=== PATIENT | male | born 1995 | race Caucasian/White ===

== ENCOUNTER 2017-10-20 19:21 | Emergency (ER) | payer SELFPAY ==
[2017-10-20 19:47] VITALS: BP 144/98
[2017-10-20] MEDS ORDERED: cefTRIAXone 250 MG Vial IM ONE (21:32)
[2017-10-20] MEDS ORDERED: Azithromycin 250 MG Tab PO ONE (21:32)
--- NOTE | 2017-10-20 21:41 | EDM.PDOC ---
ED HPI GENERAL MEDICAL PROBLEM - General Chief Complaint: Genitourinary Problem Stated Complaint: urine Time Seen by Provider: 10/20/17 21:25 Source of Information: Reports: Patient History Limitations: Reports: No Limitations - History of Present Illness INITIAL COMMENTS - FREE TEXT/NARRATIVE: This 21 yo male patient reports to the ED due to getting a text from a previous sexual partner stating that she has chlamydia. The patient reports that he found out late Saturday night and knows that he needs to be treated. The patient also reports that he has a current sexual partner and asked if she needs to be treated also. Onset: Other Duration: Other Location: Reports: Other Quality: Reports: Other Severity: Mild Improves with: Reports: None Worsens with: Reports: None Associated Symptoms: Reports: No Other Symptoms - Related Data Allergies Allergy/AdvReac Type Severity Reaction Status Date / Time dextromethorphan HBr Allergy Drowsiness Verified 10/20/17 19:44 [From Dimetapp Cold-Congestion] diphenhydramine HCl Allergy Drowsiness Verified 10/20/17 19:44 [From Dimetapp Cold-Congestion] guaifenesin Allergy Drowsiness Verified 10/20/17 19:44 [From Dimetapp Cold-Congestion] phenylephrine HCl Allergy Drowsiness Verified 10/20/17 19:44 [From Dimetapp Cold-Congestion] pseudoephedrine HCl Allergy Drowsiness Verified 10/20/17 19:44 [From Dimetapp Cold-Congestion] Home Meds: Home Meds . [No Known Home Meds] 04/08/13 [History] Past Medical History - Past Health History Medical/Surgical History: Denies Medical/Surgical History Social & Family History - Tobacco Use Smoking Status *Q: Current Every Day Smoker Years of Tobacco use: 1 Packs/Tins Daily: 0.5 - Caffeine Use Caffeine Use: Reports: None - Recreational Drug Use Recreational Drug Use: No ED ROS GENERAL - Review of Systems Review Of Systems: ROS reveals no pertinent complaints other than HPI. ED EXAM, RENAL/ - Physical Exam Exam: See Below Exam Limited By: No Limitations General Appearance: Alert, WD/WN, No Apparent Distress Eye Exam: Bilateral Eye: EOMI, Normal Inspection, PERRL Ears: Normal External Exam, Normal Canal, Hearing Grossly Normal, Normal TMs Nose: Normal Inspection, Normal Mucosa, No Blood Throat/Mouth: Normal Inspection, Normal Lips, Normal Teeth, Normal Gums, Normal Oropharynx, Normal Voice, No Airway Compromise Head: Atraumatic, Normocephalic Neck: Normal Inspection, Supple, Non-Tender, Full Range of Motion Respiratory/Chest: No Respiratory Distress, Lungs Clear, Normal Breath Sounds, No Accessory Muscle Use, Chest Non-Tender Cardiovascular: Normal Peripheral Pulses, Regular Rate, Rhythm, No Edema, No Gallop, No JVD, No Murmur, No Rub GI/Abdominal: Normal Bowel Sounds, Soft, Non-Tender, No Organomegaly, No Distention, No Abnormal Bruit, No Mass (Male) Exam: Deferred Rectal (Males) Exam: Deferred Back Exam: Normal Inspection, Full Range of Motion, NT Extremities: Normal Inspection, Normal Range of Motion, Non-Tender, Normal Capillary Refill, No Pedal Edema Neurological: Alert, Oriented, CN II-XII Intact, Normal Cognition, Normal Gait, Normal Reflexes, No Motor/Sensory Deficits Psychiatric: Normal Affect, Normal Mood Skin Exam: Warm, Dry, Intact, Normal Color, No Rash Lymphatic: No Adenopathy Course - Vital Signs Last Recorded V/S: Last Vital Signs Temp 37.1 C 10/20/17 19:46 Pulse 90 10/20/17 19:46 Resp 18 10/20/17 19:46 BP 144/98 H 10/20/17 19:46 Pulse Ox 100 10/20/17 19:46 - Orders/Labs/Meds Meds: Medications Discontinued Medications Generic Name Dose Route Start Last Admin Trade Name Freq PRN Reason Stop Dose Admin Azithromycin 1,000 mg 10/20/17 21:32 Zithromax PO 10/20/17 21:33 ONETIME ONE Ceftriaxone Sodium 250 mg 10/20/17 21:32 Rocephin IM 10/20/17 21:33 ONETIME ONE Departure - Departure Time of Disposition: 21:38 Disposition: Home, Self-Care 01 Condition: Fair Clinical Impression: Exposure to STD - Discharge Information *PRESCRIPTION DRUG MONITORING PROGRAM REVIEWED*: Not Applicable *COPY OF PRESCRIPTION DRUG MONITORING REPORT IN PATIENT ELVIS: Not Applicable Care Plan Goals: The patient was advised of the examination results during the visit. The patient was given an injection of Rocephin and an oral dose of Azithromycin while in the ED. The patient was advised to notify any sexual partners in order for them to get treated as well. If the patient has any additional symptoms or concerns, the patient should follow-up with his primary care facility or return to the emergency department.
== END 2017-10-20 21:55 | disposition home or self-care (01) ==
LOC: DL.ED 19:21
DX: Z20.2 Contact with and (suspected) exposure to infections with a predominantly sexual mode of transmission (principal); Z88.8 Allergy status to other drugs, medicaments and biological substances; F17.210 Nicotine dependence, cigarettes, uncomplicated
CPT/HCPCS: 96372; 99283; A9270; J0696

== ENCOUNTER 2017-11-11 17:09 | Emergency (ER) | payer OTHER ==
[2017-11-11 17:23] VITALS: BP 144/71
[2017-11-11] MEDS ORDERED: Lidocaine 1% 30 ML SDV INJECT ONE (17:26)
[2017-11-11] MEDS ORDERED: Bacitracin Oint 1 GM U/D Packet TOP ONE (17:26)
--- NOTE | 2017-11-11 17:32 | EDM.PDOC ---
ED HPI GENERAL MEDICAL PROBLEM - General Chief Complaint: Upper Extremity Injury/Pain Stated Complaint: CUT FINGER AT WORK Time Seen by Provider: 11/11/17 17:25 Source of Information: Reports: Patient History Limitations: Reports: No Limitations - History of Present Illness INITIAL COMMENTS - FREE TEXT/NARRATIVE: This 21 yo male patient reports to the ED with a laceration to his right 4th finger. 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 When he was reaching for the chain break, he missed the break and hit the chain. The patient reports the incident happened about 45 minutes to 1 hour prior to his arrival in the ED. The patient has no current bleeding as he was holding pressure to the area since the incident. Onset: Today Duration: Minutes: Location: Reports: Upper Extremity, Right Quality: Reports: Other Severity: Mild Improves with: Reports: None Worsens with: Reports: None Associated Symptoms: Reports: No Other Symptoms Right 4-Ring finger Pain Score (Numeric/FACES): 2 - Related Data Allergies Allergy/AdvReac Type Severity Reaction Status Date / Time dextromethorphan HBr Allergy Drowsiness Verified 11/11/17 17:23 [From Dimetapp Cold-Congestion] diphenhydramine HCl Allergy Drowsiness Verified 11/11/17 17:23 [From Dimetapp Cold-Congestion] guaifenesin Allergy Drowsiness Verified 11/11/17 17:23 [From Dimetapp Cold-Congestion] phenylephrine HCl Allergy Drowsiness Verified 11/11/17 17:23 [From Dimetapp Cold-Congestion] pseudoephedrine HCl Allergy Drowsiness Verified 11/11/17 17:23 [From Dimetapp Cold-Congestion] Home Meds: Home Meds . [No Known Home Meds] 04/08/13 [History] Past Medical History - Past Health History Medical/Surgical History: Denies Medical/Surgical History Social & Family History - Caffeine Use Caffeine Use: Reports: None Review of Systems - Review of Systems Review Of Systems: ROS reveals no pertinent complaints other than HPI. ED EXAM, GENERAL - Physical Exam Exam: See Below Exam Limited By: No Limitations General Appearance: Alert, WD/WN, Mild Distress Eye Exam: Bilateral Eye: EOMI, Normal Inspection, PERRL Ears: Normal External Exam, Normal Canal, Hearing Grossly Normal, Normal TMs Nose: Normal Inspection, Normal Mucosa, No Blood Throat/Mouth: Normal Inspection, Normal Lips, Normal Teeth, Normal Gums, Normal Oropharynx, Normal Voice, No Airway Compromise Head: Atraumatic, Normocephalic Neck: Normal Inspection, Supple, Non-Tender, Full Range of Motion Respiratory/Chest: No Respiratory Distress, Lungs Clear, Normal Breath Sounds, No Accessory Muscle Use, Chest Non-Tender Cardiovascular: Normal Peripheral Pulses, Regular Rate, Rhythm, No Edema, No Gallop, No JVD, No Murmur, No Rub GI/Abdominal: Normal Bowel Sounds, Soft, Non-Tender, No Organomegaly, No Distention, No Abnormal Bruit, No Mass (Male) Exam: Deferred Rectal (Males) Exam: Deferred Back Exam: Normal Inspection, Full Range of Motion, NT Extremities: Arm Pain (right hand) Neurological: Alert, Oriented, CN II-XII Intact, Normal Cognition, Normal Gait, Normal Reflexes, No Motor/Sensory Deficits Psychiatric: Normal Affect, Normal Mood Skin Exam: Wound/Incision (right 4th digit between MCP and PIP joints with no joint involvement.) Lymphatic: No Adenopathy ED TRAUMA EXTREMITY PROCEDURES - Laceration/Wound Repair Right Proximal Digit - 4th (Ring) Lac/Wound Length In cm: 2.0 Appearance: Subcutaneous, Irregular, Moderately Contaminated Anesthetic Type: Local Local Anesthesia - Lidocaine (Xylocaine): 1% Plain Local Anesthetic Volume: 3cc Skin Prep: Chlorhexidine (Hibiciens), Saline Exploration/Debridement/Repair: Wound Explored, Moderate Debridement, Foreign Material Removed, Wound Margins Revised Closed With: Sutures Suture Size: 4-0 # of Sutures: 6 Suture Type: Prolene, Interrupted, Simple Sterile Dressing Applied: Nurse Tetanus Status Addressed: Yes Complications: No Course - Vital Signs Last Recorded V/S: Last Vital Signs Temp 37.2 C 11/11/17 17:18 Pulse 78 11/11/17 17:18 Resp 18 11/11/17 17:18 BP 144/71 H 11/11/17 17:18 Pulse Ox 99 11/11/17 17:18 - Orders/Labs/Meds Meds: Medications Discontinued Medications Generic Name Dose Route Start Last Admin Trade Name Freq PRN Reason Stop Dose Admin Bacitracin 1 dose 11/11/17 17:26 11/11/17 18:00 Bacitracin Oint 1 Gm TOP 11/11/17 17:27 1 dose ONETIME ONE Administration Lidocaine HCl 30 ml 11/11/17 17:26 11/11/17 17:34 Xylocaine-Mpf 1% INJECT 11/11/17 17:27 30 ml ONETIME ONE Administration Departure - Departure Time of Disposition: 18:05 Disposition: Home, Self-Care 01 Condition: Fair Clinical Impression: Laceration of right ring finger Qualifiers: Encounter type: initial encounter Damage to nail status: without damage Foreign body presence: with foreign body Qualified Code(s): S61.224A - Laceration with foreign body of right ring finger without damage to nail, initial encounter - Discharge Information *PRESCRIPTION DRUG MONITORING PROGRAM REVIEWED*: Not Applicable *COPY OF PRESCRIPTION DRUG MONITORING REPORT IN PATIENT ELVIS: Not Applicable Instructions: Laceration Care, Adult, [id number] Forms: ED Department Discharge Care Plan Goals: The patient was advised of the examination results during the visit. The wound margins were well approximated during the visit. The patient should have the sutures removed in about 14 days. The patient was encouraged to keep the area clean and dry over the next 24 hours. The patient should keep the laceration covered while at work until sutures are removed. The patient was discharged with a script for Keflex (500 mg) to take 1 by mouth 3 times per day for 10 days. If the patient has any additional symptoms or concerns, the patient should follow-up with his primary care facility or return to the emergency department.
== END 2017-11-11 18:14 | disposition home or self-care (01) ==
LOC: DL.ED 17:09
DX: S61.214A Laceration without foreign body of right ring finger without damage to nail, initial encounter (principal); W22.8XXA Striking against or struck by other objects, initial encounter
CPT/HCPCS: 12001; 12011; 99283

== ENCOUNTER 2022-06-29 21:12 | Emergency (ER) | payer SELFPAY ==
[2022-06-29 21:51] LABS: BASOPHILS PERCENT AUTO 0.4 % (0.0-1.0); HEMATOCRIT 45.1 % (40.0-54.0); HEMOGLOBIN 15.8 g/dL (14.0-18.0); LYMPHOCYTES PERCENT AUTO 39.9 % (20.5-50.1); MEAN CORPUSCULAR HEMOGLOBIN 33.5 pg (27.0-34.0); MEAN CORPUSCULAR VOLUME 95.6 fL (80-100); MONOCYTES PERCENT AUTO 9.5 % (2-8); NEUTROPHILS PERCENT AUTO 49.2 % (42.2-75.2); PLATELET COUNT,PLT 235 10^3/uL (150-450); RED BLOOD CELL COUNT 4.72 10^6/uL (4.6-6.2); WHITE BLOOD CELL COUNT,WBC 11.2 10^3/uL (5.0-10.0)
[2022-06-29 22:11] LABS: A/G RATIO 1.2; ALANINE AMINOTRANSFERASE,ALT 59 U/L (16-63); ALKALINE PHOSPHATASE 86 U/L (46-116); ANION GAP 10.9 mEq/L (7-13); ASPARTATE AMNIOTRANSFERASE,AST 30 U/L (15-37); BILIRUBIN TOTAL 0.4 mg/dL (0.2-1.0); BLOOD UREA NITROGEN,BUN 16 mg/dL (7-18); BUN/CREATININE RATIO 11.3 (No establ ref range); CALCIUM 8.8 mg/dL (8.5-10.1); CARBON DIOXIDE,CO2 29 mmol/L (21-32); CHLORIDE,CL 104 mmol/L (98-107); CREATININE 1.42 mg/dL (0.70-1.30); GLUCOSE RANDOM 104 mg/dL (70-99); POTASSIUM,K 3.9 mmol/L (3.5-5.1); PROTEIN TOTAL,TP 7.3 g/dL (6.4-8.2); SODIUM,NA 140 mmol/L (136-145)
[2022-06-29 22:12] LABS: ESTIMATED GFR 70 mL/min (>=60)
[2022-06-29 22:24] VITALS: BP 128/71; PULSE 71
== END 2022-06-29 22:20 | disposition home or self-care (01) ==
LOC: DL.ED 21:12
DX: R59.1 Generalized enlarged lymph nodes (principal); Z88.8 Allergy status to other drugs, medicaments and biological substances
CPT/HCPCS: 36415; 80053; 85025; 85379; 99283

== ENCOUNTER 2022-07-26 08:18 | Emergency (ER) | payer SELFPAY ==
[2022-07-26] MEDS ORDERED: Sodium Chloride 0.9% 1,000 ML IV ONE (08:45)
[2022-07-26] MEDS ORDERED: Pantoprazole 40 MG Vial IVPUSH ONE (08:45)
[2022-07-26] MEDS ORDERED: Ondansetron 4 MG/2 ML SDV IV ONE (08:45)
[2022-07-26] MEDS ORDERED: Sodium Chloride 0.9% 10 ML Syringe FLUSH PRN (08:45)
[2022-07-26 08:59] LABS: BASOPHILS PERCENT AUTO 0.3 % (0.0-1.0); EOSINOPHILS PERCENT AUTO 0.3 % (1.0-3.0); HEMATOCRIT 47.4 % (40.0-54.0); HEMOGLOBIN 16.4 g/dL (14.0-18.0); MEAN CORPUSCULAR HEMOGLOBIN 33.4 pg (27.0-34.0); MEAN CORPUSCULAR HGB CONC 34.6 g/dL (33.0-35.0); MEAN CORPUSCULAR VOLUME 96.5 fL (80-100); MONOCYTES PERCENT AUTO 10.7 % (2-8); NEUTROPHILS PERCENT AUTO 55.7 % (42.2-75.2); PLATELET COUNT,PLT 250 10^3/uL (150-450); RED BLOOD CELL COUNT 4.91 10^6/uL (4.6-6.2); WHITE BLOOD CELL COUNT,WBC 7.6 10^3/uL (5.0-10.0)
[2022-07-26 09:26] LABS: A/G RATIO 1.4; ALBUMIN 4.4 g/dL (3.4-5.0); ANION GAP 18.1 mEq/L (7-13); BILIRUBIN TOTAL 0.4 mg/dL (0.2-1.0); BUN/CREATININE RATIO 14.6 (No establ ref range); CALCIUM 9.1 mg/dL (8.5-10.1); CREATININE 0.96 mg/dL (0.70-1.30); EST CRCL DRUG DOSING (CG) 117.63 mL/min; POTASSIUM,K 4.1 mmol/L (3.5-5.1); PROTEIN TOTAL,TP 7.6 g/dL (6.4-8.2)
[2022-07-26 09:29] LABS: LACTIC ACID 1.5 mmol/L (0.4-2.0)
[2022-07-26 09:32] LABS: PROTHROMBIN TIME 9.8 SEC (9.0-12.0); PTT,PARTIAL THROMBOPLSTIN TIME 28.1 SEC (22.0-34.0)
[2022-07-26 09:45] VITALS: BP 126/98; PULSE 64
== END 2022-07-26 09:44 | disposition home or self-care (01) ==
LOC: DL.ED 08:18
DX: K29.20 Alcoholic gastritis without bleeding (principal); F17.210 Nicotine dependence, cigarettes, uncomplicated; Z88.8 Allergy status to other drugs, medicaments and biological substances
CPT/HCPCS: 36415; 80053; 80307; 82150; 83605; 83690; 85025; 85610; 85730; 96374; 96375; 99283; 99284-25; C9113; J2405; J7030

== ENCOUNTER 2023-06-09 16:27 | Emergency (ER) | payer SELFPAY ==
[2023-06-09 17:03] LABS: APPEARANCE,URINE CLEAR (CLEAR); BILIRUBIN,URINE NEGATIVE (NEGATIVE); GLUCOSE,URINE 100 (NEGATIVE); KETONES,URINE NEGATIVE (NEGATIVE); LEUKOCYTE ESTERASE,URINE TRACE (NEGATIVE); NITRITE,URINE POSITIVE (NEGATIVE); OCCULT BLOOD,URINE TRACE-LYSED (NEGATIVE); PROTEIN,URINE 30 (NEGATIVE)
[2023-06-09 17:06] LABS: COLOR,URINE ORANGE (YELLOW)
[2023-06-09 17:11] LABS: EPITHELIAL CELLS,URINE RARE /HPF (NOT SEEN)
[2023-06-09 17:12] LABS: MUCUS,URINE MODERATE /LPF (NOT SEEN); RBC,URINE 0-5 /HPF (0-5); WBC,URINE 0-5 /HPF (0-5/HPF)
[2023-06-09 17:13] LABS: BACTERIA,URINE RARE /HPF (0-FEW/HPF)
[2023-06-09] MEDS: Take Home: Sulfamethoxazole/Trimethoprim 800-160 MG Tab, 6 Tab Pack PO ONE (18:26)
[2023-06-09 18:34] VITALS: BP 124/76; PULSE 76
[2023-06-11 09:46] LABS: C.TRACHOMATIS BY TMA Negative (Negative); N.GONORRHOEAE BY TMA Negative (Negative); SOURCE URINE
== END 2023-06-09 18:31 | disposition home or self-care (01) ==
LOC: DL.ED 16:27
DX: N39.0 Urinary tract infection, site not specified (principal); F17.200 Nicotine dependence, unspecified, uncomplicated; Z88.8 Allergy status to other drugs, medicaments and biological substances; Z79.899 Other long term (current) drug therapy
CPT/HCPCS: 81001; 87086; 87491; 87591; 99283; A9270-GY

== ENCOUNTER 2023-06-16 09:33 | Emergency (ER) | payer SELFPAY ==
[2023-06-16 09:46] VITALS: BP 158/99; PULSE 83
[2023-06-16 09:49] LABS: APPEARANCE,URINE CLEAR (CLEAR); BILIRUBIN,URINE NEGATIVE (NEGATIVE); COLOR,URINE YELLOW (YELLOW); GLUCOSE,URINE NEGATIVE (NEGATIVE); KETONES,URINE NEGATIVE (NEGATIVE); LEUKOCYTE ESTERASE,URINE NEGATIVE (NEGATIVE); NITRITE,URINE NEGATIVE (NEGATIVE); OCCULT BLOOD,URINE TRACE-INTACT (NEGATIVE); PROTEIN,URINE NEGATIVE (NEGATIVE); UROBILINOGEN,URINE 0.2 mg/dL (0.2-1.0)
[2023-06-16 09:59] LABS: BACTERIA,URINE NOT SEEN /HPF (0-FEW/HPF); EPITHELIAL CELLS,URINE RARE /HPF (NOT SEEN); RBC,URINE 0-5 /HPF (0-5); WBC,URINE NOT SEEN /HPF (0-5/HPF)
[2023-06-16] MEDS: Ciprofloxacin 500 MG Tab PO ONE ×2 (10:16)
== END 2023-06-16 10:23 ==
LOC: DL.ED 09:33
DX: N30.00 Acute cystitis without hematuria (principal); Z88.8 Allergy status to other drugs, medicaments and biological substances
CPT/HCPCS: 81001; 99283; A9270-GY